=== PATIENT | male | born 1955 | race Caucasian/White ===

== ENCOUNTER → 2019-01-11 14:37 | Outpatient (CLI) | payer OTHER, SELFPAY ==
--- NOTE | 2019-01-11 | DI.US.S_ITS ---
PROCEDURE: US ABD AORTA ANEURYSM SCREEN INDICATIONS: AAA SCREENING TECHNIQUE: Real time scanning was performed of the aorta and iliac arteries, with image documentation. COMPARISON: None. FINDINGS: Aorta: Imaged proximal abdominal aortic diameter measures 2.4 cm. Imaged mid abdominal aortic diameter measures 2.0 x 1.9 cm. Imaged distal abdominal aortic diameter measures 1.6 cm. Iliac arteries: Imaged proximal right common iliac artery diameter measures 0.9 cm. Image proximal left common iliac artery diameter measures 1.0 cm. IMPRESSION: 1. No ultrasound evidence of abdominal aortic aneurysm. 2. No ultrasound evidence of proximal common iliac artery aneurysm. Dictated by: Jani Abbott M.D. on 01/11/2019 at 15:21 Approved by: Jani Abbott M.D. on 01/11/2019 at 15:40
== END ==
PROVIDERS: Visit Provider Student in an Organized Health Care Education/Training Program
DX: Z13.6 Encounter for screening for cardiovascular disorders (principal)
CPT/HCPCS: 76706

== ENCOUNTER → 2020-02-05 11:28 | Outpatient (CLI) | payer MEDICARE, OTHER, SELFPAY ==
--- NOTE | 2020-02-05 | DI.RAD.S_ITS ---
PROCEDURE: XR SHOULDER RT MIN 2V INDICATIONS: RIGHT SHOULDER PAIN TECHNIQUE: 3 views of the shoulder were acquired. COMPARISON: None. FINDINGS: Bones: No fractures or dislocations. No suspicious bony lesions. Visualized ribs appear intact. Lateral downsloping appearance of the acromion. [id number] right shoulder joint degeneration. Soft tissues: Mild calcific tendinitis. IMPRESSION: Mild calcific tendinitis. Lateral downsloping appearance of the acromion [id number] right shoulder joint degeneration. Dictated by: Chintan Luis M.D. on 02/05/2020 at 13:58 Approved by: Chintan Luis M.D. on 02/05/2020 at 13:59
== END ==
PROVIDERS: PCP Student in an Organized Health Care Education/Training Program; Referring Provider Student in an Organized Health Care Education/Training Program; Visit Provider Student in an Organized Health Care Education/Training Program
DX: M25.511 Pain in right shoulder (principal); M75.31 Calcific tendinitis of right shoulder; M19.011 Primary osteoarthritis, right shoulder
CPT/HCPCS: 73030

== ENCOUNTER → 2020-03-19 09:53 | Outpatient (CLI) | payer MEDICARE, OTHER, SELFPAY ==
[2020-03-19] MEDS: COVID-19 VACC #1, MRNA(MOD) 100 MCG/0.5 ML VIAL IM (09:59)
== END ==
PROVIDERS: PCP Student in an Organized Health Care Education/Training Program; Visit Provider Internal Medicine
DX: Z23 Encounter for immunization (principal)
CPT/HCPCS: 0011A; 91301

== ENCOUNTER → 2020-04-16 09:45 | Outpatient (CLI) | payer MEDICARE, OTHER, SELFPAY ==
[2020-04-16] MEDS: COVID-19 VACC #2, MRNA(MOD) 100 MCG/0.5 ML VIAL IM (09:56)
== END ==
PROVIDERS: PCP Student in an Organized Health Care Education/Training Program; Visit Provider Internal Medicine
DX: Z23 Encounter for immunization (principal)
CPT/HCPCS: 0012A; 91301